=== PATIENT | male | born 2000 | race Two or more races ===

== ENCOUNTER 2023-09-23 17:56 | Emergency (ER) | payer MEDICAID ==
[~2023-09-23] VITALS: Ht 177.8 cm; Wt 68.0 kg
[2023-09-23] MEDS ORDERED: AZIT250T PO ×2 (22:24→22:49)
[2023-09-23 22:50] VITALS: BP 128/88; TEMP 209.3; O2SAT 98
== END 2023-09-23 22:51 | disposition home or self-care (01) ==
LOC: ER 17:56
DX: J40 Bronchitis, not specified as acute or chronic (principal); R51.9 Headache, unspecified; Z20.822 Contact with and (suspected) exposure to COVID-19
CPT/HCPCS: 70450-TC; 71045-TC